=== PATIENT | male | born 1990 | race Caucasian/White ===

== ENCOUNTER 2016-08-19 08:01 | Emergency (ER) | payer SELFPAY ==
[~2016-08-19] VITALS: Ht 200.7 cm; Wt 90.7 kg
[~2016-08-19 08:01] MED LIST: CEPH500C PO; CEPH500T PO; CLIN300C3 PO; CYCL10TA45 PO; DICL50TA4 PO; HYDR-1231 PO; HYDR-3812 PO; HYDR-3816 PO; HYDR25CA5 PO; IBUP-1773 PO; IBUP-1780 PO; IBUP200C11 PO; NAPR-243 PO; NAPR500T PO; RT-ALBUINH IH; SULF1TAB23 PO; SULF1TAB38 PO; TRAM50TA2 PO
[2016-08-19] MEDS ORDERED: CEPH-507 PO (08:26)
[2016-08-19] MEDS ORDERED: TRAM50TA2 PO (08:26)
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
[2016-08-19 08:30] VITALS: BP 159/80
--- NOTE | 2016-08-19 08:35 | Diagnostic Imaging Report ---
INDICATION: Injury to left foot AP, oblique, and lateral views of the left foot are obtained. No fracture or radiopaque foreign body is seen. IMPRESSION: Negative left foot. Dictated by: Dictated on workstation # [id number]
== END 2016-08-19 08:48 | disposition home or self-care (01) ==
LOC: EDUNIT# 08:01 → ER 08:03
DX: S91.332A Puncture wound without foreign body, left foot, initial encounter (principal); W45.0XXA Nail entering through skin, initial encounter; F17.210 Nicotine dependence, cigarettes, uncomplicated; Y99.8 Other external cause status
CPT/HCPCS: 73630

== ENCOUNTER 2016-12-08 01:02 | Emergency (ER) | payer SELFPAY ==
[~2016-12-08] VITALS: Ht 200.7 cm; Wt 92.5 kg
[~2016-12-08 01:02] MED LIST changes: +CEPH-507 PO
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
[2016-12-08] MEDS ORDERED: RX-TRAMADOL 50 MG (ULTRAM) TAB PPK#4 PO STA (01:52)
[2016-12-08 02:06] VITALS: BP 135/92
--- NOTE | 2016-12-08 08:30 | Diagnostic Imaging Report ---
INDICATION: Great toe injury with pain AP, oblique and lateral views of the left great toe reveal nondisplaced fracture through the terminal tuft of the first distal phalanx. There is no abnormal lytic or sclerotic focus. There is no radiopaque foreign body. IMPRESSION: Nondisplaced terminal tuft fracture of the first distal phalanx. Dictated by: Dictated on workstation # [id number]
== END 2016-12-08 02:06 | disposition home or self-care (01) ==
LOC: EDUNIT# 01:02 → ER 01:05
DX: S92.401A Displaced unspecified fracture of right great toe, initial encounter for closed fracture (principal); F17.210 Nicotine dependence, cigarettes, uncomplicated; W20.8XXA Other cause of strike by thrown, projected or falling object, initial encounter; Y92.009 Unspecified place in unspecified non-institutional (private) residence as the place of occurrence of the external cause; Y99.8 Other external cause status
CPT/HCPCS: 73660; 99283

== ENCOUNTER 2018-07-01 03:09 | Emergency (ER) | payer SELFPAY ==
[~2018-07-01] VITALS: Ht 200.7 cm; Wt 92.5 kg
[~2018-07-01 03:09] MED LIST changes: +ACHD5005 PO; +HYDR-34 PO; -HYDR-3812 PO; -HYDR-3816 PO; +NAPR-1071 PO; -NAPR500T PO
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
--- NOTE | 2018-07-01 03:34 | ED Cough/URI ---
General Stated Complaint: VOMITING,DIARRHEA,SORE THROAT,LEFT EAR PAIN Source: patient Exam Limitations: no limitations History of Present Illness Date Seen by Provider: Jul 01, 2018 Time Seen by Provider: 03:20 Initial Comments Patient presents the ER by private conveyance with chief complaint last 2 days she's had body aches, cough, malaise, chills, even nausea and retching. He has nasal congestion, sore throat, ears feeling like they're under pressure/ underwater left worse than right. He has no significant medical or surgical history and does not take any medicines routinely. He's been using ibuprofen for the symptoms. He does smoke about a pack a day but he has not been smoking as much since he got sick. Allergies and Home Medications Allergies Coded Allergies: Penicillins (Unverified Adverse Reaction, Intermediate, 08/25/13) Home Medications Benzonatate 100 Mg Capsule, 100 MG PO Q6H PRN for COUGH Prescribed by: JEANNE CARROLL on 07/01/18 033 Cephalexin 500 Mg Capsule, 500 MG PO TID Prescribed by: GAURANG MAYEN on 08/19/16825 Ondansetron 4 Mg Tab.rapdis, 4 MG PO Q6H PRN for NAUSEA/VOMITING Prescribed by: JEANNE CARROLL on 07/01/18 033 Tramadol HCl 50 Mg Tablet, 1-2 MG PO Q4H PRN for PAIN Prescribed by: GAURANG MAYEN on 08/19/16825 Patient Home Medication List Home Medication List Reviewed: Yes Review of Systems Review of Systems Constitutional: chills; No diaphoresis, No fever; malaise EENTM: No hearing loss, No ear pain Respiratory: cough; No phlegm, No short of breath, No wheezing Cardiovascular: No chest pain, No palpitations, No syncope Gastrointestinal: No abdominal pain, No constipation, No diarrhea; nausea, vomiting Genitourinary: No discharge, No dysuria Musculoskeletal: No back pain, No joint pain Past Jxhodjo-Pmazpm-Wpdtpg Hx Patient Social History Alcohol Use: Occasionally Uses Alcohol Beverage of Choice: Beer Recreational Drug Use: No Smoking Status: Current Everyday Smoker Type Used: Cigarettes 2nd Hand Smoke Exposure: Yes Recent Foreign Travel: No Contact w/Someone Who Travel: No Recent Hopitalizations: No Immunizations Up To Date Tetanus Booster (TDap): Less than 5yrs Date of Influenza Vaccine: May 08, 2013 Past Medical History Surgeries: Yes (right wrist fx/surgery with hardware) Orthopedic, Tonsillectomy Respiratory: No Cardiac: No Neurological: No Reproductive Disorders: No Sexually Transmitted Disease: No Gastrointestinal: No Musculoskeletal: No Endocrine: No Cancer: No Psychosocial: No ADD/ADHD Integumentary: No Blood Disorders: No Adverse Reaction/Blood Tranf: No Family Medical History No Pertinent Family Hx Physical Exam Vital Signs - First Documented 07/01/18 03:16 Temp 97.9 Pulse 107 Resp 19 B/P (MAP) 136/98 (111) Capillary Refill : Height: 6'7.00" Weight: 204lbs. 0oz. 92.762452gv; BMI Method:Stated General Appearance: WD/WN, mild distress Eyes: Bilateral Eye Normal Inspection, Bilateral Eye PERRL, Bilateral Eye EOMI HEENT: PERRL/EOMI, other (both ear canals occluded with cerumen. Left ear canal mildly tender to manipulation. Thin clear rhinorrhea noted. Erythematous, injected swollen tonsils. ) Neck: full range of motion, normal inspection, other (mild shotty lymphadenopathy bilateral anterior cervical chains) Respiratory: lungs clear, normal breath sounds, no respiratory distress, no accessory muscle use Cardiovascular: normal peripheral pulses, regular rate, rhythm Gastrointestinal: normal bowel sounds, non tender, soft Extremities: non-tender, normal inspection, normal capillary refill Neurologic/Psychiatric: alert, normal mood/affect, oriented x 3 Skin: normal color, warm/dry Progress/Results/Core Measures Suspected Sepsis SIRS Temperature: Pulse: Respiratory Rate: Blood Pressure / Mean: Results/Orders Lab Results Laboratory Tests Test 07/01/18 03:25 Range/Units Group A Streptococcus Screen NEGATIVE NEGATIVE My Orders Orders - JEANNE CARROLL Rapid Strep A Screen (07/01/18 03:25) Vital Signs/I&O 07/01/18 03:16 Temp 97.9 Pulse 107 Resp 19 B/P (MAP) 136/98 (111) Capillary Refill : Progress Note : Time: 03:30 Progress Note Going on for 2 days sounds like viral. Regarding to get him some symptomatic support with some cough drops, Zofran and encouraged him to use Tylenol and Motrin as well as Flonase. We will obtain a rapid strep. Departure Impression Primary Impression: Viral upper respiratory tract infection with cough Additional Impression: Nausea & vomiting Qualified Codes: R11.2 - Nausea with vomiting, unspecified Disposition: 01 HOME, SELF-CARE Condition: Stable Departure-Patient Inst. Decision time for Depature: 03:44 Referrals: [facility] (PCP/Family) Primary Care Physician Patient Instructions: Viral Upper Respiratory Infection, Adult (DC) Add. Discharge Instructions: If your strep culture comes back we'll call you out some antibiotics. If you have a cough you can use the cough drops Tessalon Perles 1 every 6 hours. If you have malaise, body aches, chills or fevers you can use Tylenol 1000 mg every 8 hours and/or ibuprofen 800 mg every 8 hours. If you have nausea you can use one tablet of Zofran every [address] under the tongue and allowed to absorb as needed. historic sites supervisor a bottle of Flonase/fluticasone and put 1 puff up each nostril twice daily for the next 1-2 weeks to help open up your middle ear's. If you have nasal congestion or runny eyes or runny nose and you can take one to 2 tablets of chlorpheniramine every 4 hours as needed. Scripts Benzonatate (Tessalon Perle) 100 Mg Capsule 100 MG PO Q6H PRN for COUGH, #20 CAP 0 Refills Prov: JEANNE CARROLL 07/01/18 Ondansetron (Ondansetron Odt) 4 Mg Tab.rapdis 4 MG PO Q6H PRN for NAUSEA/VOMITING, #8 TAB 0 Refills Prov: JEANNE CARROLL 07/01/18 Work/School Note: Work Release Form Date Seen in the Emergency Department: Jul 01, 2018 Return to Work: Jul 03, 2018 Restrictions: No Restrictions JEANNE CARROLL Jul 01, 2018 03:34
[2018-07-01] MEDS ORDERED: BENZ-13 PO (03:36)
[2018-07-01] MEDS ORDERED: ONDA4TAB11 PO (03:36)
[2018-07-01 03:45] VITALS: BP 136/98
== END 2018-07-01 03:46 | disposition home or self-care (01) ==
LOC: EDUNIT# 03:09 → ER 03:12
DX: J06.9 Acute upper respiratory infection, unspecified (principal); R11.2 Nausea with vomiting, unspecified; F90.9 Attention-deficit hyperactivity disorder, unspecified type; F17.210 Nicotine dependence, cigarettes, uncomplicated; Z88.0 Allergy status to penicillin; Z90.89 Acquired absence of other organs
CPT/HCPCS: 87430; 99284